=== PATIENT | female | born 1990 | race Hispanic/Latino ===

== ENCOUNTER 2017-10-07 10:52 | Inpatient (IN) | payer MEDICAID, OTHER, SELFPAY ==
[2017-10-07 11:54] VITALS: BMI 32.4
[2017-10-07 13:37] LABS: #Lymphocytes 1.3 thou/uL (1.20-3.40); #Monocytes 0.3 thou/uL (0.11-0.59); #Neutrophils 4.1 thou/uL (1.40-6.50); %Basophils 0.2 % (0.0-1.0); %Eosinophils 0.6 % (0.0-10.0); %Lymphocytes 23.4 % (21.0-51.0); %Monocytes 4.4 % (0.0-10.0); %Neutrophils 71.4 % (42.0-75.0); Hemoglobin 12.7 g/dL (12.0-16.0); Mean Corpuscular HGB CONC 35.6 g/dL (32.0-36.0); Mean Corpuscular Hemoglobin 32.6 pg (27.0-31.0); Mean Corpuscular Volume 91.5 fL (78.0-98.0); Mean Platelet Volume 8.5 fL (7.4-10.4); Platelet Count 166 thou/uL (130-400); RBC Distribution Width 12.8 % (11.5-14.5); Red Blood Cell (RBC) Count 3.88 mill/uL (4.20-5.40); White Blood Cell (WBC) Count 5.8 thou/uL (4.8-10.8)
[2017-10-07 13:56] LABS: ALT (SGPT) 18 U/L (8-55); AST (SGOT) 30 U/L (5-34); Albumin 3.3 g/dL (3.5-5.0); Alkaline Phosphatase 154 U/L (40-150); Anion Gap 15 mmol/L (10-20); BUN (Urea Nitrogen) 11 mg/dL (7.0-18.7); Bilirubin, Total 0.8 mg/dL (0.2-1.2); Calc. Creatinine Clearance 182 mL/min (70-130); Calcium 9.2 mg/dL (7.8-10.44); Carbon Dioxide 17 mmol/L (22-29); Chloride 109 mmol/L (98-107); Estimated GFR-MDRD Greater than 90; Glucose 73 mg/dL (70-105); Potassium 4.1 mmol/L (3.5-5.1); Protein, Total 6.3 g/dL (6.0-8.3); Sodium 137 mmol/L (136-145)
--- NOTE | 2017-10-07 14:16 | ULT ---
BIOPHYSICAL PROFILE: Date: 10/07/17 COMPARISON: None. HISTORY: -induced hypertension workup. TECHNIQUE: Multiplanar Mendoza scale sonographic imaging of the gravid uterus obtained to perform a biophysical pro file. FINDINGS: A single intrauterine gestation is present demonstrating a vertex presentation. The placenta is located in the fundus. heart rate is 157 beats/minute. Amniotic fluid index is 14.0 cm. The supervisor shuttle fitting reports a 2 out of 2 score for tone, breathing, movement, and amnio tic fluid, for a normal 8 out of 8 biophysical profile score. IMPRESSION: 8 out of 8 biophysical profile. POS: [facility]
[2017-10-08 13:21] LABS: 24 Hr Creatinine 1422.13 mg/24 hr (710-1650); Creatinine, Urine 91.75 mg/dL (47-110)
[2017-10-08] MEDS ORDERED: Misoprostol 200 MCG TAB PR PRN (21:00)
[2017-10-08] MEDS ORDERED: Carboprost 250 MCG/ML AMP IM PRN (21:00)
[2017-10-08] MEDS ORDERED: Ibuprofen 800 MG TAB PO PRN (21:00)
[2017-10-08] MEDS ORDERED: Butorphanol Tartrate 1 MG/ML VIAL SLOW IVP PRN (21:00)
[2017-10-08] MEDS ORDERED: HYDROcodone/Acetaminophen 5/325 mg Tablet PO PRN (21:00)
[2017-10-08] MEDS ORDERED: Calcium Gluc 4.6 MEQ/10 ML (100 MG/ML) SLOW IVP PRN (21:00)
[2017-10-08] MEDS ORDERED: Lidocaine 1% (PF) 30 ML VIAL SC PRN (21:00)
[2017-10-08] MEDS ORDERED: Ondansetron HCl/PF 4 MG/2 ML Vial IVP PRN (21:00)
[2017-10-08] MEDS ORDERED: Diphenoxylate HCl/Atropine Tablet PO PRN (21:00)
[2017-10-08] MEDS: Lactated Ringer's 1,000 ML IV SCH (23:46)
[2017-10-09 00:05] LABS: Hemoglobin 12.6 g/dL (12.0-16.0); Mean Corpuscular HGB CONC 35.5 g/dL (32.0-36.0); Mean Corpuscular Hemoglobin 32.7 pg (27.0-31.0); Mean Corpuscular Volume 92.2 fL (78.0-98.0); Mean Platelet Volume 9.2 fL (7.4-10.4); Platelet Count 173 thou/uL (130-400); RBC Distribution Width 12.7 % (11.5-14.5); Red Blood Cell (RBC) Count 3.86 mill/uL (4.20-5.40); White Blood Cell (WBC) Count 6.7 thou/uL (4.8-10.8)
[2017-10-09 00:44] LABS: HBSAg Index 0.46 S/CO (0-0.99); Hep B Surf Ag Non-Reactive S/CO (NonReactive); Syphilis Antibody Nonreactive (Nonreactive); Syphilis Antibody Index 0.06 S/CO (<1.00 Non-Reactive)
[2017-10-09] MEDS ORDERED: NS w/ Oxytocin 10 units 500 ML IV SCH ×2 (05:00)
[2017-10-09] MEDS: Lactated Ringer's 1,000 ML IV SCH ×2 (08:20→11:32)
[2017-10-09] MEDS ORDERED: Bupivacaine 0.5% 20 ML, fentaNYL Citrate/PF 400 MCG in Sodium Chloride 0.9% 72 ML EPIDURAL SCH (09:15)
[2017-10-09] MEDS ORDERED: DISCONTINUE ALL PREVIOUS NARCOTICS FS SCH (09:15)
[2017-10-09] MEDS ORDERED: ePHEDrine/0.9% NaCl/PF SYRINGE 50 mg/10 ml SLOW IVP PRN (16:39)
[2017-10-09] MEDS ORDERED: Naloxone HCl 0.4 mg/ml Vial IVP PRN ×2 (16:39)
[2017-10-09] MEDS ORDERED: Lactated Ringer's 500 ML IV PRN (16:39)
[2017-10-09] MEDS ORDERED: Eucerin (Mineral Oil/Petrolatum,White) 30 gm Jar TOP PRN (16:39)
[2017-10-09] MEDS ORDERED: Communication Order-Pharmacy FS SCH (16:45)
[2017-10-09] MEDS ORDERED: fentaNYL Citrate/PF 400 MCG, Bupivacaine 0.5% 20 ML in Sodium Chloride 0.9% 72 ML EPIDURAL SCH (16:45)
[2017-10-09] MEDS: NS / Oxytocin 40 units/1000ml 1,000 ML IV PRN ×2 (17:25→18:57)
[2017-10-09] MEDS ORDERED: Ondansetron HCl/PF 4 MG/2 ML Vial IVP PRN (20:29)
[2017-10-09] MEDS ORDERED: Benzocaine/Menthol 20-0.5% 60 ML CAN TOP PRN (20:29)
[2017-10-09] MEDS ORDERED: Milk Of Magnesia 30 ML UDCUP PO PRN (20:29)
[2017-10-09] MEDS ORDERED: Bisacodyl 10 MG SUPP PR PRN (20:29)
[2017-10-09] MEDS ORDERED: Lanolin Ointment 7 GM TUBE TOP PRN (20:29)
[2017-10-09] MEDS ORDERED: HYDROcodone/Acetaminophen 5/325 mg Tablet PO PRN ×2 (20:29)
[2017-10-09] MEDS ORDERED: NS / Oxytocin 40 units/1000ml 1,000 ML IV SCH (20:29)
[2017-10-10] MEDS: Docusate Calcium (SURFAK) 240 MG CAP PO SCH ×2 (02:14→09:20)
[2017-10-10] MEDS: Ibuprofen 800 MG TAB PO SCH ×3 (02:14→14:33)
[2017-10-10 05:29] LABS: Hemoglobin 11.4 g/dL (12.0-16.0); Mean Corpuscular HGB CONC 35.4 g/dL (32.0-36.0); Mean Corpuscular Hemoglobin 32.7 pg (27.0-31.0); Mean Corpuscular Volume 92.5 fL (78.0-98.0); Mean Platelet Volume 9.2 fL (7.4-10.4); Platelet Count 164 thou/uL (130-400); RBC Distribution Width 12.8 % (11.5-14.5); Red Blood Cell (RBC) Count 3.47 mill/uL (4.20-5.40)
[2017-10-10] MEDS ORDERED: Prenatal Vitamin 1 TAB PO SCH (09:00)
[2017-10-10] MEDS: Ferrous Sulfate 325 MG TAB PO SCH ×2 (09:20→16:11)
[2017-10-10 17:18] VITALS: BP 127/84; TEMP 98.7
--- NOTE | 2017-11-03 08:18 | OP ---
DATE OF DELIVERY: 10/09/2017 DESCRIPTION OF EVENTS: This is a 26-year-old female, G3, P2, now P3, delivered a viable mal e over an intact perineum. There was no nuchal cord noted. Delivery was uneventful and witho ut difficulties. The placenta delivered spontaneously and intact, three-vessel cord was noted, no la cerations were noted. ESTIMATED BLOOD LOSS: 270 mL. FINDINGS: Viable male infant, 8 pounds 3 ounces, Apgars 9 and 9 at 1 and 5 minutes, respectively.
[2019-10-08] MEDS ORDERED: Bupivacaine PF 0.5% 30 ML VIAL ONE (11:11)
== END 2017-10-10 20:20 | disposition home or self-care (01) | DRG 775 ==
LOC: L&D 10:52 → OBSVTOIN 10:52 → L&D 10-08 22:21 → 3SE 10-09 20:29
PROVIDERS: ADMIT Family Medicine; ATTEND Family Medicine
PROC: 3E033VJ Introduction of Other Hormone into Peripheral Vein, Percutaneous Approach (ICD-10-PCS; 2017-10-08)
PROC: 10E0XZZ Delivery of Products of Conception, External Approach (ICD-10-PCS; principal; 2017-10-09)
DX: O13.4 Gestational [pregnancy-induced] hypertension without significant proteinuria, complicating childbirth (principal); Z3A.38 38 weeks gestation of pregnancy; Z37.0 Single live birth
CPT/HCPCS: 36415; 51702; 76819; 80053; 81003; 82570; 84156; 85025; 85027; 86780; 86850; 86900; 86901; 87340; J2001; J3010; J3490; J7050

== ENCOUNTER 2020-08-24 08:40 | Outpatient (CLI) | payer OTHER | END 2020-08-24 08:41 | disposition home or self-care (01) | LOC: BICULT 08:40 | PROVIDERS: ATTEND Family Medicine | DX: Z34.82 Encounter for supervision of other normal pregnancy, second trimester (principal); Z3A.21 21 weeks gestation of pregnancy | CPT/HCPCS: 76805 ==